=== PATIENT | male | born 1975 | race Caucasian/White ===

== ENCOUNTER 2017-01-24 23:47 | Emergency (ER) | payer MEDICAID ==
[2017-01-24 23:59] VITALS: BP 125/87
--- NOTE | 2017-01-25 00:01 | ED Physician Documentation ---
PD HPI HEENT - Stated complaint Stated Complaint: JAW SWELLING,PAIN - Chief complaint Chief Complaint: Heent - History obtained from History obtained from: Patient - History of Present Illness Timing - onset: How many days ago (2-3) Timing - details: Gradual onset Location: Tooth Improves: Nothing Worsens: Other (no exacerbating factors) Associated symptoms: Facial swelling. No: Fever, Trismus, Unable to swallow Recently seen: Not recently seen - Additional information Additional information: c/o 2-3 days of worsening swelling and pain adjacent to left lower tooth, with swelling spreading to his left jaw since earlier today Review of Systems Constitutional: denies: Fever Throat: reports: Dental pain / toothache PD PAST MEDICAL HISTORY - Past Medical History Past Medical History: No - Past Surgical History Past Surgical History: Yes General: EGD - Present Medications Home Medications: Ambulatory Orders Medication Instructions Recorded Confirmed Albuterol Sulfate [Proair Hfa] 8.5 gm IH DAILY 03/24/15 01/24/17 Chlorhexidine Gluconate [Peridex] 15 ml MM BID #473 ml 01/25/17 Clindamycin HCl 300 mg PO Q6HR 10 Days 01/25/17 HYDROcod/ACETAM 5/325 [[address] 5/325] 1 - 2 ea PO Q6H PRN #15 tablet 01/25/17 - Allergies Allergies/Adverse Reactions: Allergies Allergy/AdvReac Type Severity Reaction Status Date / Time aspirin Allergy Unknown Verified 01/24/17 23:59 red (food color) Allergy Unknown Verified 01/24/17 23:59 - Social History Does the pt smoke?: No Smoking Status: Never smoker Does the pt drink ETOH?: No Does the pt have substance abuse?: No - Immunizations Immunizations are current?: Yes PD ED PE NORMAL - Vitals Vital signs reviewed: Yes - General General: Alert and oriented X 3, No acute distress, Well developed/nourished - HEENT HEENT: Moist mucous membranes - Neck Neck: Supple, no meningeal sign PD ED PE EXPANDED - HEENT HEENT Visual: 1 - swelling, tenderness 2 - tenderness (with adjacent swelling of gingiva (buccal aspect). there is bloody discharge from buccal gingiva at this site) Results - Vitals Vitals: Vital Signs - 24 hr 01/24/17 23:57 Temperature 36.9 C Heart Rate 94 Respiratory 18 Rate Blood Pressure 125/87 H O2 Saturation 98 Oxygen O2 Source Room air PD MEDICAL DECISION MAKING - ED course Complexity details: considered differential, d/w patient Departure - Departure Disposition: 01 Home, Self Care Clinical Impression: Dental infection Condition: Good Instructions: ED Abscess Dental Follow-Up: Salena Grullon ARNP [Primary Care Provider] - Prescriptions: Clindamycin HCl 300 mg PO Q6HR 10 Days HYDROcod/ACETAM 5/325 [[address] 5/325] 1 - 2 ea PO Q6H PRN #15 tablet PRN Reason: Pain Chlorhexidine Gluconate [Peridex] 15 ml MM BID #473 ml Comments: Follow up with dentistry, next available appointment Discharge Date/Time: 01/25/17 00:55
[2017-01-25] MEDS ORDERED: HYDROcod/ACETAM 5/325 MG TABLET PO STA (00:38)
[2017-01-25] MEDS ORDERED: CLINDAMYCIN 150 MG CAPSULE PO STA (00:38)
[2017-01-25] MEDS ORDERED: HYDROcod/ACETAM 5/325 MG TABLET ONE (00:49)
[2017-01-25] MEDS ORDERED: CLINDAMYCIN 150 MG CAPSULE PO ONE (00:49)
== END 2017-01-25 00:55 | disposition home or self-care (01) ==
LOC: ED 23:47
DX: K04.7 Periapical abscess without sinus (principal)
CPT/HCPCS: 99283; A9270

== ENCOUNTER 2018-05-14 15:02 | Emergency (ER) | payer MEDICAID ==
[2018-05-14 15:14] VITALS: BP 126/84
[2018-05-14] MEDS ORDERED: DEXAMETHASONE 10 MG/ML VIAL PO STA (16:08)
--- NOTE | 2018-05-14 16:10 | ED Physician Documentation ---
PD HPI BACK PAIN - Stated complaint Stated Complaint: BACK WENT OUT - Chief complaint Chief Complaint: Back Pain - History obtained from History obtained from: Patient, Family - History of Present Illness Timing - onset: Yesterday Timing - duration: Days (1) Timing - details: Abrupt onset, Still present Location: Lower, Right Quality: Pain, Spasm, Sharp Associated symptoms: No: Fever, Weakness, Numbness, Incontinent of urine, Unable to urinate, Hematuria, Incontinent of stool Improves with: Rest, Position Worsened by: Movement Similar symptoms before: Diagnosis (back strain) Recently seen: Not recently seen - Additional information Additional information: 42-year-old male with a history of Marfan syndrome went to bend over to cone picker a can of Pringles and had sudden sharp spasm in his back and he was not able to stand up properly. He had a lot of pain yesterday and today pain is slightly better but very well localized in his right lower back. He denies any urinary or bowel symptoms denies any saddle anesthesia denies any numbness distally. He has not been ill otherwise. Review of Systems Constitutional: denies: Fever, Chills, Myalgias Eyes: denies: Decreased vision Ears: denies: Ear pain Nose: denies: Rhinorrhea / runny nose, Congestion Throat: denies: Sore throat Respiratory: denies: Cough GI: denies: Abdominal Pain, Nausea, Vomiting : denies: Dysuria, Frequency Skin: denies: Rash Musculoskeletal: reports: Back pain. denies: Neck pain, Extremity pain, Extremity swelling Neurologic: denies: Generalized weakness, Focal weakness, Numbness PD PAST MEDICAL HISTORY - Past Medical History Past Medical History: Yes Respiratory: Asthma - Past Surgical History Past Surgical History: Yes General: EGD - Present Medications Home Medications: Ambulatory Orders Medication Instructions Recorded Confirmed Albuterol Sulfate [Proair Hfa] 8.5 gm IH DAILY 03/24/15 01/24/17 Cyclobenzaprine [Flexeril] 10 mg PO TID PRN #20 tablet 05/14/18 Hydrocodone/Acetaminophen 1 - 2 each PO Q6H PRN #14 tablet 05/14/18 [Hydrocodon-Acetaminophen 5-325] - Allergies Allergies/Adverse Reactions: Allergies Allergy/AdvReac Type Severity Reaction Status Date / Time aspirin Allergy Unknown Verified 01/24/17 23:59 red (food color) Allergy Unknown Verified 05/14/18 15:14 - Social History Does the pt smoke?: No Smoking Status: Never smoker Does the pt drink ETOH?: No Does the pt have substance abuse?: No - Immunizations Immunizations are current?: Yes PD ED PE NORMAL - Vitals Vital signs reviewed: Yes (diastolic hypertension) - General General: Alert and oriented X 3, No acute distress, Well developed/nourished, Other (tall thin male with crazy buffont hair is in no distress at rest) - HEENT HEENT: Atraumatic, PERRL, EOMI - Respiratory Respiratory: No respiratory distress - Back Back: No CVA TTP, Other (There is point tenderness to the lower lumbar spine and spasm to the right paraspinous muscles at the L4/5 level) - Derm Derm: Normal color, Warm and dry, No rash - Extremities Extremities: No deformity, No edema - Neuro Neuro: Alert and oriented X 3, data warehouse consultant 2-12 intact, No motor deficit, No sensory deficit Eye Opening: Spontaneous Motor: Obeys Commands Verbal: Oriented GCS Score: 15 - Psych Psych: Normal mood, Normal affect Results - Vitals Vitals: Vital Signs - 24 hr 05/14/18 15:11 Temperature 36.8 C Heart Rate 93 Respiratory 18 Rate Blood Pressure 126/84 H O2 Saturation 100 Oxygen O2 Source Room air PD MEDICAL DECISION MAKING - ED course Complexity details: reviewed old records, considered differential, d/w patient, d/w family ED course: 42-year-old male with acute lumbar spasm is administered Dexamethasone 10 mg orally and we will place him on some pain medication and muscle relaxant. Departure - Departure Disposition: 01 Home, Self Care Clinical Impression: Lumbar paraspinal muscle spasm Condition: Stable Instructions: ED Sciatica Follow-Up: Brenda Loyd DNP [Primary Care Provider] - Prescriptions: Cyclobenzaprine [Flexeril] 10 mg PO TID PRN #20 tablet PRN Reason: Spasms Hydrocodone/Acetaminophen [Hydrocodon-Acetaminophen 5-325] 1 - 2 each PO Q6H PRN #14 tablet PRN Reason: pain Discharge Date/Time: 05/14/18 16:17
== END 2018-05-14 16:17 | disposition home or self-care (01) ==
LOC: ED 15:02
DX: M62.830 Muscle spasm of back (principal); Q87.40 Marfan syndrome, unspecified
CPT/HCPCS: 99283

== ENCOUNTER 2018-07-06 13:24 | Emergency (ER) | payer MEDICAID ==
[2018-07-06 13:31] VITALS: BP 125/87
--- NOTE | 2018-07-06 14:46 | ED Physician Documentation ---
PD HPI HEENT - Stated complaint Stated Complaint: MOUTH PAIN - Chief complaint Chief Complaint: Heent - History obtained from History obtained from: Patient - History of Present Illness Timing - onset: How many days ago (4) Timing - duration: Days (4) Timing - details: Gradual onset, Now resolved Location: Tooth Improves: Medication Worsens: Swalllowing Associated symptoms: Swollen nodes. No: Fever, Congestion, Rhinorrhea, Cough Similar symptoms before: Diagnosis (dental abscess) Recently seen: Emergency Dept - Additional information Additional information: 42-year-old male with a history of Marfan syndrome who has developed a abscessed tooth on the right lower has increased pain and swelling to the right lower jaw. He has had this similarly once previously he took some clindamycin with improvement. He reports that his back pain improved dramatically with the treatment provided on the last visit. Review of Systems Constitutional: denies: Fever, Chills Eyes: denies: Decreased vision Ears: denies: Ear pain Nose: denies: Rhinorrhea / runny nose Throat: reports: Dental pain / toothache Respiratory: denies: Cough PD PAST MEDICAL HISTORY - Past Medical History Respiratory: Asthma - Past Surgical History Past Surgical History: Yes General: EGD - Present Medications Home Medications: Ambulatory Orders Medication Instructions Recorded Confirmed Albuterol Sulfate [Proair Hfa] 8.5 gm IH DAILY 03/24/15 01/24/17 Cyclobenzaprine [Flexeril] 10 mg PO TID PRN #20 tablet 05/14/18 Hydrocodone/Acetaminophen 1 - 2 each PO Q6H PRN #14 tablet 05/14/18 [Hydrocodon-Acetaminophen 5-325] Chlorhexidine Gluconate [Peridex] 15 ml MM BID #473 ml 07/06/18 Clindamycin HCl [Clindamycin 300MG 300 mg PO Q6H #28 capsule 07/06/18 CAP] - Allergies Allergies/Adverse Reactions: Allergies Allergy/AdvReac Type Severity Reaction Status Date / Time aspirin Allergy Unknown Verified 01/24/17 23:59 red (food color) Allergy Unknown Verified 05/14/18 15:14 sracha sauce Allergy Edema Uncoded 07/06/18 13:31 - Social History Does the pt smoke?: No Smoking Status: Never smoker Does the pt drink ETOH?: No Does the pt have substance abuse?: No - Immunizations Immunizations are current?: Yes PD ED PE NORMAL - Vitals Vital signs reviewed: Yes (hypertensive mild ) - General General: Alert and oriented X 3, No acute distress, Well developed/nourished - HEENT HEENT: Atraumatic, PERRL, EOMI, Other (There is a tooth broken off at the base on the right lower jaw and the gums to the buccal side of this are inflamed and swollen without fluctuance. 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, No motor deficit, No sensory deficit, Normal speech Eye Opening: Spontaneous Motor: Obeys Commands Verbal: Oriented GCS Score: 15 - Psych Psych: Normal mood, Normal affect Results - Vitals Vitals: Vital Signs - 24 hr 07/06/18 13:28 Temperature 36 C L Heart Rate 84 Respiratory 16 Rate Blood Pressure 125/87 H O2 Saturation 100 Oxygen O2 Source Room air PD MEDICAL DECISION MAKING - ED course Complexity details: considered differential, d/w patient ED course: 42-year-old male with a abscess to his tooth will require some antibiotic and pain medication he does have some pain medication left over from his prior he indicates also that the mouthwash to use previously the Peridex helped with this quite a bit. Departure - Departure Disposition: 01 Home, Self Care Clinical Impression: Dental infection Condition: Stable Instructions: ED Tooth Pain Follow-Up: Brenda Loyd DNP [Primary Care Provider] - Prescriptions: Chlorhexidine Gluconate [Peridex] 15 ml MM BID #473 ml Clindamycin HCl [Clindamycin 300MG CAP] 300 mg PO Q6H #28 capsule
== END 2018-07-06 14:55 | disposition home or self-care (01) ==
LOC: ED 13:24
DX: K04.7 Periapical abscess without sinus (principal); Q87.40 Marfan syndrome, unspecified
CPT/HCPCS: 99283

== ENCOUNTER 2019-05-31 13:14 | Day surgery (SDC) | payer MEDICAID ==
[2019-05-31] MEDS ORDERED: GLUCAGON 1 MG/ML VIAL IVP STA (14:07)
--- NOTE | 2019-05-31 14:11 | ED Physician Documentation ---
History of Present Illness - Stated complaint Stated Complaint: DIFF. SWALLOWING - Chief complaint Chief Complaint: Heent - History obtained from History obtained from: Patient - History of Present Illness Timing: Last night (43-year-old gentleman with history of esophageal food impactions, sounds like some sort of stricture from his description and at some point he says he needs to have a dilation. Since last night he feels like turkey is stuck in his throat and he cannot tolerate food or liquids.) Review of Systems Constitutional: reports: Reviewed and negative Throat: reports: Reviewed and negative Cardiac: reports: Reviewed and negative PD PAST MEDICAL HISTORY - Past Medical History Respiratory: Asthma - Past Surgical History Past Surgical History: Yes General: EGD - Present Medications Home Medications: Ambulatory Orders Medication Instructions Recorded Confirmed Albuterol Sulfate [Proair Hfa] 8.5 gm IH DAILY 03/24/15 01/24/17 Cyclobenzaprine [Flexeril] 10 mg PO TID PRN #20 tablet 05/14/18 Hydrocodone/Acetaminophen 1 - 2 each PO Q6H PRN #14 tablet 05/14/18 [Hydrocodon-Acetaminophen 5-325] Chlorhexidine Gluconate [Peridex] 15 ml MM BID #473 ml 07/06/18 Clindamycin HCl [Clindamycin 300MG 300 mg PO Q6H #28 capsule 07/06/18 CAP] - Allergies Allergies/Adverse Reactions: Allergies Allergy/AdvReac Type Severity Reaction Status Date / Time aspirin Allergy Unknown Verified 05/31/19 13:22 red (food color) Allergy Unknown Verified 05/31/19 13:22 sracha sauce Allergy Edema Uncoded 05/31/19 13:22 - Social History Does the pt smoke?: No Smoking Status: Never smoker Does the pt drink ETOH?: No Does the pt have substance abuse?: No - Immunizations Immunizations are current?: Yes PD ED PE NORMAL - Vitals Vital signs reviewed: Yes - General General: Alert and oriented X 3, No acute distress - HEENT HEENT: Pharynx benign - Neck Neck: Supple, no meningeal sign, No bony TTP - Cardiac Cardiac: RRR, No murmur - Respiratory Respiratory: No respiratory distress, Clear bilaterally - Abdomen Abdomen: Non tender - Neuro Neuro: Alert and oriented X 3, Normal speech Results - Vitals Vitals: Vital Signs - 24 hr 05/31/19 05/31/1919 13:19 14:59 15:20 Temperature 36.3 C L Heart Rate 93 83 86 Respiratory 17 14 14 Rate Blood Pressure 121/71 60/41 L 83/69 L O2 Saturation 98 95 98 Oxygen O2 Source Room air - Labs Labs: Laboratory Tests 05/31/19 05/31/19 14:10 14:10 WBC 8.5 RBC 5.17 Hgb 15.8 Hct 47.6 MCV 92.1 MCH 30.6 MCHC 33.2 RDW 15.0 Plt Count 277 MPV 8.9 Neut # (Auto) 5.6 Lymph # (Auto) 1.4 L [place] # (Auto) 0.8 Eos # (Auto) 0.7 Baso # (Auto) 0.1 Absolute Nucleated RBC 0.00 Nucleated RBC % 0.0 Sodium 141 Potassium 3.7 Chloride 104 Carbon Dioxide 24 Anion Gap 13.0 BUN 22 H Creatinine 1.0 Estimated GFR (MDRD) 82 L Glucose 76 Calcium 9.2 Total Bilirubin 1.5 H AST 23 ALT 13 Alkaline Phosphatase 60 Total Protein 8.2 Albumin 4.6 Globulin 3.6 Albumin/Globulin Ratio 1.3 Lipase 30 PD MEDICAL DECISION MAKING - ED course ED course: 43-year-old gentleman with recurrence of esophageal food impaction, from his description it sounds like he probably has a stricture. We trialed glucagon and nitroglycerin without relief, he actually became briefly significantly hypotensive with the nitroglycerin. Talked with Dr. Zhang she will come in and see him for potential endoscopic fix, we spoke at 1534. Departure - Departure Disposition: ED Transfer to [facility] Clinical Impression: Esophageal foreign body Qualifiers: Encounter type: initial encounter Qualified Code(s): T18.108A - Unspecified foreign body in esophagus causing other injury, initial encounter Condition: Stable
[2019-05-31] MEDS ORDERED: WATER FOR INJECTION,STERILE 10 ML ONE (14:20)
[2019-05-31] MEDS ORDERED: NITROGLYCERIN SL 0.4 MG TABLET SL STA (14:36)
[2019-05-31 14:37] LABS: BASOPHILS # (AUTO) 0.1 10^3/uL (0.0-0.1); BASOPHILS % (AUTO) 0.7 %; EOSINOPHILS # (AUTO) 0.7 10^3/uL (0.0-0.7); EOSINOPHILS % (AUTO) 7.8 %; HGB - HEMOGLOBIN 15.8 g/dL (14.0-18.0); LYMPHOCYTES # (AUTO) 1.4 10^3/uL (1.5-3.5); LYMPHOCYTES % (AUTO) 16.7 %; MEAN CORPUSCULAR HEMOGLOBIN 30.6 pg (27.0-31.0); MEAN CORPUSCULAR HGB CONC 33.2 g/dL (32.0-36.0); MEAN CORPUSCULAR VOLUME 92.1 fL (80.0-94.0); MEAN PLATELET VOLUME 8.9 fL (7.4-11.4); MONOCYTES # (AUTO) 0.8 10^3/uL (0.0-1.0); MONOCYTES % (AUTO) 9.1 %; NEUTROPHILS # (AUTO) 5.6 10^3/uL (1.5-6.6); NEUTROPHILS % (AUTO) 65.5 %; PLT - PLATELET COUNT 277 10^3/uL (130-450); RED BLOOD COUNT 5.17 10^6/uL (4.70-6.10); WHITE BLOOD COUNT 8.5 x10^3/uL (4.8-10.8)
[2019-05-31 14:52] LABS: ALBUMIN 4.6 g/dL (3.2-5.5); ALBUMIN/GLOBULIN RATIO 1.3 (1.0-2.2); BILIRUBIN,TOTAL 1.5 mg/dL (0.2-1.0); CALCIUM 9.2 mg/dL (8.5-10.3); TOTAL PROTEIN 8.2 g/dL (6.7-8.2)
--- NOTE | 2019-05-31 15:57 | ANESTHESIA ---
Pre-Anesthesia VS, & Labs - Diagnosis foreign body esophagus - Procedure EGD Vital Signs: Temp Pulse Resp BP Pulse Ox 36.3 C L 86 14 83/69 L 98 05/31/19 13:19 05/31/19 15:20 05/31/19 15:20 05/31/19 15:20 05/31/19 15:20 Height 6 ft 3 in Weight (kg) 78.471 kg Body Mass Index 21.6 - NPO Last Food Intake: 1800 05/30/2019 - Lab Results Current Lab Results: Laboratory Tests 05/31/19 14:10: Sodium 141, Potassium 3.7, Chloride 104, Carbon Dioxide 24, Anion Gap 13.0, BUN 22 H, Creatinine 1.0, Estimated GFR (MDRD) 82 L, Glucose 76, Calcium 9.2, Total Bilirubin 1.5 H, AST 23, ALT 13, Alkaline Phosphatase 60, Total Protein 8.2, Albumin 4.6, Globulin 3.6, Albumin/Globulin Ratio 1.3, Lipase 30 05/31/19 14:10: WBC 8.5, RBC 5.17, Hgb 15.8, Hct 47.6, MCV 92.1, MCH 30.6, MCHC 33.2, RDW 15.0, Plt Count 277, MPV 8.9, Neut # (Auto) 5.6, Lymph # (Auto) 1.4 L, Bent # (Auto) 0.8, Eos # (Auto) 0.7, Baso # (Auto) 0.1, Absolute Nucleated RBC 0.00, Nucleated RBC % 0.0 Fish Bones: 05/31/19 14:10 05/31/19 14:10 Home Medications and Allergies Albuterol Sulfate [Proair Hfa] 8.5 gm IH DAILY 03/24/15 Advair singulair Allergies/Adverse Reactions: Allergies Allergy/AdvReac Type Severity Reaction Status Date / Time aspirin Allergy Unknown Verified 05/31/19 13:22 red (food color) Allergy Unknown Verified 05/31/19 13:22 sracha sauce Allergy Edema Uncoded 05/31/19 13:22 Anes History & Medical History - Anesthetic History Anesthesia Complications: reports: No previous complications - Medical History Cardiovascular: reports: Other (marfan syndrome) Pulmonary: reports: Asthma (controlled with meds) Gastrointestinal: reports: Other (frequent esophageal obstruction) Urinary: reports: None Neuro: reports: None Musculoskeletal: reports: None Endocrine/Autoimmune: reports: None Blood Disorders: reports: None Smoking Status: Never smoker Psychosocial: reports: No issues indicated - Surgical History General: EGD Eyes Ears Nose Throat (EENT): Other (nasal cautery for nose bleed) Exam General: Alert, Oriented x3, Cooperative, No acute distress Dental: Poor dentition Mouth Openin Fingerbreadth Neck Mobility: Reduced (large bundle of hair) Mallampati classification: II Thyromental Distance: greater than 6 cm Respiratory: Lungs clear, Normal breath sounds, No respiratory distress, No accessory muscle use Cardiovascular: Regular rate, Normal S1, Normal S2, No murmurs Mental/Cognitive Status: Alert/Oriented X3, Normal for patient Plan Anesthesia Type: General Consent for Procedure(s) Verified and Reviewed: Yes Code Status: Attempt Resuscitation ASA classification: 3-Severe systemic disease Is this case an emergency?: Yes
[2019-05-31] MEDS ORDERED: fentaNYL 100 MCG/2 ML VIAL ONE (16:14)
[2019-05-31] MEDS ORDERED: MIDAZOLAM 2 MG/2 ML VIAL ONE (16:15)
--- NOTE | 2019-05-31 16:52 | HISTORY & PHYSICAL EXAMINATION ---
HPI - Admitted From Admitted from: ED - History Obtained From Records Reviewed: RN notes reviewed, Old records reviewed History obtained from: Patient Exam limitations: No limitations - History of Present Illness Severity at the worst: reports: Moderate Pain Quality: reports: Dull, Aching, Crushing Context-Pain started w/: reports: Eating Timing: reports: Abrupt onset, Intermittent Duration: reports: Hours: (started last night at supper with first bites) Improved with: reports: Nothing Worsened by: reports: Nothing HPI Comment/Other: Unfortunate gentleman with a history of a proximal esophageal stricture. He has been seen in our ED in the past with complaint of esophageal food bolus impaction in 2014. He says this started last night with his first bites of supper and has been consistent since that time. He has not been able to swallow liquids or solids. He reports multiple similar episodes starting when he was about 15. He doesnt recall ever having esophageal dilatation. PMH/PSH - Past Medical History Cardiovascular: positive: Other (marfan syndrome) Respiratory: positive: Asthma (controlled with meds) Neuro: positive: None Endocrine/Autoimmune: positive: None GI: positive: Other (frequent esophageal obstruction) : positive: None Musculoskeletal: positive: None MRSA Hx?: No Other Past Medical History: Diagnosed with Marfan's syndrome several years ago - Past Surgical History General: positive: EGD HEENT: positive: Other (nasal cautery for nose bleed) Social & Family Hx - Living Situation Living Arrangement: At home - Social History Does the pt smoke?: No Smoking Status: Never smoker Does the pt drink ETOH?: No Does the pt have substance abuse?: No - POLST Patient has POLST: No Meds/Allgy - Home Medications Home Medications: Ambulatory Orders Medication Instructions Recorded Confirmed Albuterol Sulfate [Proair Hfa] 8.5 gm IH DAILY 03/24/15 01/24/17 Cyclobenzaprine [Flexeril] 10 mg PO TID PRN #20 tablet 05/14/18 Hydrocodone/Acetaminophen 1 - 2 each PO Q6H PRN #14 tablet 05/14/18 [Hydrocodon-Acetaminophen 5-325] Chlorhexidine Gluconate [Peridex] 15 ml MM BID #473 ml 07/06/18 Clindamycin HCl [Clindamycin 300MG 300 mg PO Q6H #28 capsule 07/06/18 CAP] - Allergies Allergies/Adverse Reactions: Allergies Allergy/AdvReac Type Severity Reaction Status Date / Time aspirin Allergy Unknown Verified 05/31/19 13:22 red (food color) Allergy Unknown Verified 05/31/19 13:22 sracha sauce Allergy Edema Uncoded 05/31/19 13:22 Review of Systems - Constitutional Constitutional: denies: Fatigue, Fever, Chills, Malaise - Eyes Eyes: denies: Pain, Irritation - Ears, Nose & Throat Ears, Nose & Throat: denies: Tinnitus, Vertigo - Cardiovascular Cariovascular: denies: Irregular heart rate, Palpitations, Chest pain, Lightheadedness - Respiratory Respiratory: reports: Sputum production. denies: Cough, Wheezing - Gastrointestinal Gastrointestinal: denies: Abdominal pain, Abdominal distention, Constipation, Diarrhea, Change in bowel habits, Black stools, Bloody stools, Nausea, Vomiting - Genitourinary Genitourinary: denies: Dysuria, Frequency - Musculoskeletal Musculoskeletal: denies: Muscle pain, Back pain, Muscle aches, Stiffness - Integumentary Integumentary: denies: Rash - Neurological Neurological: denies: General weakness, Focal weakness - Psychiatric Psychiatric: denies: Depression, Anxiety - Hematologic/Lymphatic Hematologic/Lymphatic: denies: Anemia, Bruising - All Other Systems All Other Systems: reports: Reviewed and negative Exam - Vital Signs Reviewed Vital Signs: Yes Vital Signs: Vital Signs x48h Temp Pulse Resp BP Pulse Ox 05/31/19 15:20 86 14 83/69 L 98 05/31/19 14:59 83 14 60/41 L 95 05/31/19 13:19 36.3 C L 93 17 121/71 98 - Physical Exam General Appearance: positive: Alert, Moderate distress Eyes Bilateral: positive: Normal inspection, PERRL, EOMI, Conjunctivae nml ENT: positive: ENT inspection nml, No signs of dehydration. negative: Oral lesions Neck: positive: Nml inspection, No JVD, Trachea midline Respiratory: positive: Chest non-tender, No respiratory distress, Breath sounds nml Cardiovascular: positive: Regular rate & rhythm, No murmur, No gallop Peripheral Pulses: positive: 2+ Abdomen: positive: Non-tender, Nml bowel sounds, No distention Back: positive: Nml inspection Skin: positive: Color nml Extremities: positive: Non-tender, Full ROM Neurologic/Psychiatric: positive: Oriented x3 Results - Lab Results Lab results reviewed: Yes Fish Bones: 05/31/19 14:10 05/31/19 14:10 Other Lab Results: Lab Results x24hrs 05/31/19 05/31/19 Range/Units 14:10 14:10 WBC 8.5 (4.8-10.8) x10^3/uL RBC 5.17 (4.70-6.10) 10^6/uL Hgb 15.8 (14.0-18.0) g/dL Hct 47.6 (42.0-52.0) % MCV 92.1 (80.0-94.0) fL MCH 30.6 (27.0-31.0) pg MCHC 33.2 (32.0-36.0) g/dL RDW 15.0 (12.0-15.0) % Plt Count 277 (130-450) 10^3/uL MPV 8.9 (7.4-11.4) fL Neut # (Auto) 5.6 (1.5-6.6) 10^3/uL Lymph # (Auto) 1.4 L (1.5-3.5) 10^3/uL [place] # (Auto) 0.8 (0.0-1.0) 10^3/uL Eos # (Auto) 0.7 (0.0-0.7) 10^3/uL Baso # (Auto) 0.1 (0.0-0.1) 10^3/uL Absolute Nucleated RBC 0.00 x10^3/uL Nucleated RBC % 0.0 /100WBC Sodium 141 (135-145) mmol/L Potassium 3.7 (3.5-5.0) mmol/L Chloride 104 (101-111) mmol/L Carbon Dioxide 24 (21-32) mmol/L Anion Gap 13.0 (6-13) BUN 22 H (6-20) mg/dL Creatinine 1.0 (0.6-1.2) mg/dL Estimated GFR (MDRD) 82 L (>89) Glucose 76 (70-100) mg/dL Calcium 9.2 (8.5-10.3) mg/dL Total Bilirubin 1.5 H (0.2-1.0) mg/dL AST 23 (10-42) IU/L ALT 13 (10-60) IU/L Alkaline Phosphatase 60 (42-121) IU/L Total Protein 8.2 (6.7-8.2) g/dL Albumin 4.6 (3.2-5.5) g/dL Globulin 3.6 (2.1-4.2) g/dL Albumin/Globulin Ratio 1.3 (1.0-2.2) Lipase 30 (22-51) U/L Impression/Plan - Problem List Problem List: Food bolus impaction in the setting of a 43 year old gentleman with multiple prior episodes. We have discussed the risks and benefits of EGD with removal of impacted food bolus and the patient has expressed a desire to have the procedure.
[2019-05-31] MEDS ORDERED: LACTATED RINGERS 1,000 ML IV ONE (17:11)
[2019-05-31 18:49] VITALS: BP 110/82
== END 2019-05-31 17:03 | disposition home or self-care (01) ==
LOC: ED 13:14 → SDS 17:02
PROVIDERS: ATTEND Surgery
PROC: 0DB68ZX Excision of Stomach, Via Natural or Artificial Opening Endoscopic, Diagnostic (ICD-10-PCS; 2019-05-31)
PROC: 0DB28ZX Excision of Middle Esophagus, Via Natural or Artificial Opening Endoscopic, Diagnostic (ICD-10-PCS; 2019-05-31)
PROC: 0DB38ZX Excision of Lower Esophagus, Via Natural or Artificial Opening Endoscopic, Diagnostic (ICD-10-PCS; 2019-05-31)
PROC: 0DB98ZX Excision of Duodenum, Via Natural or Artificial Opening Endoscopic, Diagnostic (ICD-10-PCS; principal; 2019-05-31 16:15)
DX: K22.2 Esophageal obstruction (principal); K22.10 Ulcer of esophagus without bleeding; K29.70 Gastritis, unspecified, without bleeding; I95.2 Hypotension due to drugs; T46.3X5A Adverse effect of coronary vasodilators, initial encounter; Y92.238 Other place in hospital as the place of occurrence of the external cause; J45.909 Unspecified asthma, uncomplicated; Q87.40 Marfan syndrome, unspecified; Z79.899 Other long term (current) drug therapy
CPT/HCPCS: 43239; 80053; 83690; 85025; 96374; 99283; 99285; A9270; J7120

== ENCOUNTER 2020-05-12 14:54 | Outpatient (CLI) | payer MEDICAID ==
[2020-05-12 20:11] LABS: BASOPHILS # (AUTO) 0.1 10^3/uL (0.0-0.1); BASOPHILS % (AUTO) 0.7 %; EOSINOPHILS # (AUTO) 0.8 10^3/uL (0.0-0.7); EOSINOPHILS % (AUTO) 11.2 %; HGB - HEMOGLOBIN 14.5 g/dL (14.0-18.0); LYMPHOCYTES # (AUTO) 1.6 10^3/uL (1.5-3.5); LYMPHOCYTES % (AUTO) 21.7 %; MEAN CORPUSCULAR HGB CONC 32.4 g/dL (32.0-36.0); MEAN CORPUSCULAR VOLUME 92.4 fL (80.0-94.0); MEAN PLATELET VOLUME 9.3 fL (7.4-11.4); MONOCYTES # (AUTO) 0.8 10^3/uL (0.0-1.0); NEUTROPHILS # (AUTO) 4.1 10^3/uL (1.5-6.6); NEUTROPHILS % (AUTO) 55.3 %; PLT - PLATELET COUNT 281 10^3/uL (130-450); RED BLOOD COUNT 4.84 10^6/uL (4.70-6.10); RED CELL DISTRIBUTION WIDTH 15.2 % (12.0-15.0); WHITE BLOOD COUNT 7.5 x10^3/uL (4.8-10.8)
[2020-05-12 20:22] LABS: ALBUMIN/GLOBULIN RATIO 1.1 (1.0-2.2); ALKALINE PHOSPHATASE 80 IU/L (42-121); ALT ALANINE AMINOTRANSFERASE 13 IU/L (10-60); AST ASPARTATE AMINOTRANSFERASE 16 IU/L (10-42); BILIRUBIN,TOTAL 1.2 mg/dL (0.2-1.0); BUN - BLOOD UREA NITROGEN 15 mg/dL (6-20); CALCIUM 8.9 mg/dL (8.5-10.3); CARBON DIOXIDE - CO2 26 mmol/L (21-32); CHLORIDE 103 mmol/L (101-111); CHOLESTEROL 174 mg/dL; CREATININE 1.1 mg/dL (0.6-1.2); GLUCOSE 87 mg/dL (70-100); HDL CHOLESTEROL 43 mg/dL; LDL CHOLESTEROL,CALCULATED 123 mg/dL; LDL/HDL RATIO 2.9 (<3.6); SODIUM 136 mmol/L (135-145); TOTAL PROTEIN 7.5 g/dL (6.7-8.2); VLDL CHOLESTEROL 8 mg/dL
== END 2020-05-12 14:55 | disposition home or self-care (01) ==
LOC: LAB.S 14:54
PROVIDERS: ATTEND Registered Nurse
DX: R46.89 Other symptoms and signs involving appearance and behavior (principal); K22.2 Esophageal obstruction; J45.909 Unspecified asthma, uncomplicated; K21.9 Gastro-esophageal reflux disease without esophagitis; K20.0 Eosinophilic esophagitis
CPT/HCPCS: 36415; 80050; 80061; 83721

== ENCOUNTER 2021-07-13 13:38 | Day surgery (SDC) | payer MEDICAID ==
[2021-07-13 15:12] LABS: BASOPHILS % (AUTO) 0.5 %; EOSINOPHILS # (AUTO) 0.2 10^3/uL (0.0-0.7); HCT - HEMATOCRIT 42.9 % (42.0-52.0); HGB - HEMOGLOBIN 14.4 g/dL (14.0-18.0); LYMPHOCYTES # (AUTO) 1.3 10^3/uL (1.5-3.5); LYMPHOCYTES % (AUTO) 15.4 %; MEAN CORPUSCULAR HEMOGLOBIN 31.7 pg (27.0-31.0); MEAN CORPUSCULAR HGB CONC 33.6 g/dL (32.0-36.0); MEAN CORPUSCULAR VOLUME 94.5 fL (80.0-94.0); MEAN PLATELET VOLUME 8.8 fL (7.4-11.4); MONOCYTES # (AUTO) 0.7 10^3/uL (0.0-1.0); MONOCYTES % (AUTO) 8.3 %; NEUTROPHILS # (AUTO) 6.2 10^3/uL (1.5-6.6); NEUTROPHILS % (AUTO) 73.4 %; PLT - PLATELET COUNT 251 10^3/uL (130-450); RED BLOOD COUNT 4.54 10^6/uL (4.70-6.10); RED CELL DISTRIBUTION WIDTH 14.7 % (12.0-15.0); WHITE BLOOD COUNT 8.4 x10^3/uL (4.8-10.8)
--- NOTE | 2021-07-13 15:17 | XRAY Report ---
PROCEDURE: Neck Soft Tissue, x-ray INDICATIONS: throat obstruction TECHNIQUE: 2 views of the neck were acquired. COMPARISON: None FINDINGS: Airway: The airway appears patent. Soft tissues: Prevertebral soft tissues are normal in thickness. The epiglottis and aryepiglottic f olds appear normal. No soft tissue gas. Frontal view is obscured by artifact arising from the patie nt's hair Bones: No suspicious bony lesions. Visualized cervical spine is normally aligned. Incidental note is made of advanced carious and periodontal dental disease. IMPRESSION: 1. Unremarkable lateral view of the soft tissue neck. 2. Nondiagnostic frontal view 3. Advanced carious and periodontal dental disease Reviewed by: Timmy Mancilla MD on 07/13/2021 2:15 PM AKST Approved by: Timmy Mancilla MD on 07/13/2021 2:15 PM AKST Station ID: [id number]
[2021-07-13 15:25] LABS: CALCIUM 8.9 mg/dL (8.5-10.3)
[2021-07-13] MEDS ORDERED: GLUCAGON 1 MG/ML VIAL IVP STA (16:30)
[2021-07-13] MEDS ORDERED: SODIUM CHLORIDE 0.9% 1,000 ML IV STA (16:30)
--- NOTE | 2021-07-13 16:32 | ED Physician Documentation ---
History of Present Illness - Stated complaint Stated Complaint: THROAT OBSTRUCTION - Chief complaint Chief Complaint: General - History obtained from History obtained from: Patient - History of Present Illness Timing: Today Pain level max: 0 Pain level now: 0 - Additonal information Additional information: Patient is a 45-year-old male who states he was eating dinner on Tuesday night and felt like chicken became stuck in his esophagus. He states he has been unable to eat or drink since then. He states he has a history of Marfan syndrome. He states that he has had strictures in his esophagus before. Has had endoscopies here in the past. Review of Systems Constitutional: denies: Fever, Chills Throat: denies: Sore throat Cardiac: denies: Chest pain / pressure Respiratory: denies: Cough GI: denies: Abdominal Pain Skin: denies: Rash Musculoskeletal: denies: Neck pain, Back pain Neurologic: denies: Headache PD PAST MEDICAL HISTORY - Past Medical History Past Medical History: Yes Cardiovascular: Other (marfan syndrome) Respiratory: Asthma Neuro: None Endocrine/Autoimmune: None GI: Other (frequent esophageal obstruction) : None Musculoskeletal: None - Past Surgical History Past Surgical History: Yes General: EGD HEENT: Other (nasal cautery for nose bleed) - Present Medications Home Medications: Ambulatory Orders Medication Instructions Recorded Confirmed Albuterol Sulfate [Proair Hfa] 8.5 gm IH DAILY 03/24/15 01/24/17 Cyclobenzaprine [Flexeril] 10 mg PO TID PRN #20 tablet 05/14/18 Hydrocodone/Acetaminophen 1 - 2 each PO Q6H PRN #14 tablet 05/14/18 [Hydrocodon-Acetaminophen 5-325] Chlorhexidine Gluconate [Peridex] 15 ml MM BID #473 ml 07/06/18 Clindamycin HCl [Clindamycin 300MG 300 mg PO Q6H #28 capsule 07/06/18 CAP] - Allergies Allergies/Adverse Reactions: Allergies Allergy/AdvReac Type Severity Reaction Status Date / Time aspirin Allergy Unknown Verified 07/13/21 13:41 red (food color) Allergy Unknown Verified 07/13/21 13:41 sracha sauce Allergy Edema Uncoded 07/13/21 13:41 - Social History Does the pt smoke?: No Smoking Status: Never smoker Does the pt drink ETOH?: No Does the pt have substance abuse?: No - Immunizations Immunizations are current?: Yes - POLST Patient has POLST: No PD ED PE NORMAL - Vitals Vital signs reviewed: Yes - General General: Alert and oriented X 3, No acute distress - HEENT HEENT: Moist mucous membranes - Neck Neck: Supple, no meningeal sign - Cardiac Cardiac: RRR - Respiratory Respiratory: No respiratory distress, Clear bilaterally - Derm Derm: Warm and dry - Neuro Neuro: Alert and oriented X 3 - Psych Psych: Normal mood, Normal affect Results - Vitals Vitals: Vital Signs - 24 hr 07/13/21 07/13/21 07/13/21 13:41 18:26 20:26 Temperature 36.5 C 36.2 C L Heart Rate 98 87 87 Respiratory 16 19 Rate Blood Pressure 121/69 116/73 117/81 H O2 Saturation 100 99 98 07/13/21 07/13/21 07/13/21 20:30 20:35 20:40 Temperature 36.2 C L 36.2 C L 36.2 C L Heart Rate 83 82 89 Respiratory 16 19 19 Rate Blood Pressure 113/81 H 110/78 114/80 O2 Saturation 96 96 96 07/13/21 07/13/21 20:51 21:00 Temperature 36.3 C L 36.4 C L Heart Rate 83 79 Respiratory 18 16 Rate Blood Pressure 117/81 H 119/80 O2 Saturation 99 96 Oxygen O2 Source Room air - Labs Labs: Laboratory Tests 07/13/21 07/13/21 07/13/21 15:05 15:05 16:55 WBC 8.4 RBC 4.54 L Hgb 14.4 Hct 42.9 MCV 94.5 H MCH 31.7 H MCHC 33.6 RDW 14.7 Plt Count 251 MPV 8.8 Neut # (Auto) 6.2 Lymph # (Auto) 1.3 L Lee # (Auto) 0.7 Eos # (Auto) 0.2 Baso # (Auto) 0.0 Absolute Nucleated RBC 0.00 Nucleated RBC % 0.0 Sodium 137 Potassium 4.0 Chloride 103 Carbon Dioxide 22 Anion Gap 12.0 BUN 24 H Creatinine 1.0 Estimated GFR (MDRD) 82 L Glucose 77 Calcium 8.9 Nasal Adenovirus (PCR) NOT DETECTED Nasal B. parapertussis DNA (PCR) NOT DETECTED Nasal Coronavir 229E PCR NOT DETECTED Nasal Coronavir HKU1 PCR NOT DETECTED Nasal Coronavir NL63 PCR NOT DETECTED Nasal Coronavir OC43 PCR NOT DETECTED Nasal Enterovir/Rhinovir PCR NOT DETECTED Nasal Influenza B PCR NOT DETECTED Nasal Influenza A PCR NOT DETECTED Nasal Parainfluen 1 PCR NOT DETECTED Nasal Parainfluen 2 PCR NOT DETECTED Nasal Parainfluen 3 PCR NOT DETECTED Nasal Parainfluen 4 PCR NOT DETECTED Nasal RSV (PCR) NOT DETECTED Nasal B.pertussis DNA PCR NOT DETECTED Nasal C.pneumoniae (PCR) NOT DETECTED Anshu Human Metapneumo PCR NOT DETECTED Nasal M.pneumoniae (PCR) NOT DETECTED Nasal SARS-CoV-2 (PCR) NOT DETECTED PD MEDICAL DECISION MAKING - ED course Complexity details: reviewed results, re-evaluated patient, considered d ifferential, d/w patient, d/w sr technical sales consultant ED course: Patient is unable to tolerate any oral liquids. He was given an IV and IV fluids. No significant electrolyte abnormalities. Glucagon did not allow passage. I discussed the case with Dr. Haines, general surgery who will take the patient to the OR for endoscopy. This document was made in part using voice recognition software. While efforts are made to proofread this document, sound alike and grammatical errors may occur. Departure - Departure Disposition: ED Transfer to [facility] Clinical Impression: Esophageal foreign body Qualifiers: Encounter type: initial encounter Qualified Code(s): T18.108A - Unspecified foreign body in esophagus causing other injury, initial encounter Condition: Good Discharge Date/Time: 07/13/21 19:30
--- NOTE | 2021-07-13 18:22 | HISTORY & PHYSICAL EXAMINATION ---
Chief Complaint - Chief Complaint Chief Complaint: food impaction History of Present Illness - History Obtained From History obtained from: patient and EMR - History of Present Illness HPI Comment/Other: 45M with Marfan's, reactive airway disease, and esophageal stricture, who presents with sensation of food impaction. He ate some fried chicken on Tuesday and feels like the food bolus got stuck in his throat. Similar to prior episodes of impaction. Has tried swallowing warm water to help dislodge it without success. He is able to tolerate his own secretions but has not had anything else to eat or drink since Tuesday. On arrival to the ED he is hemodynamically stable, afebrile, WBC 8, and neck x- ray demonstrates no abnormalities and no subcutaneous air. He has been given cocacola to try and dissolve the bolus but regurgitates anything he tries to drink. He was given glucagon IV, but the sensation of food impaction remains. He has had multiple (5-6) prior episodes that are similar, most recently in 05/[address] Zhang performed an EGD demonstrating an esophageal stricture and esophagitis. No food bolus encountered at that time. Biopsies were taken demonstrating eosinophilic esophagitis, no malignancy. History - Past Medical History Cardiovascular: reports: Other (marfan syndrome) Respiratory: reports: Asthma Neuro: reports: None Endocrine/Autoimmune: reports: None GI: reports: Other (frequent esophageal obstruction) : reports: None Musculoskeletal: reports: None MRSA Hx?: No - Past Surgical History General: reports: EGD HEENT: reports: Other (nasal cautery for nose bleed) - Family & Social History Family History Comment/Other: Dad and brother with Marfan's Living arrangement: At home Living Situation: With family Social History Notes: Lives with brother and father (who is on home hospice). Not working currently. - Substance History Use: Uses substance without health or social issues: NONE - POLST Patient has POLST: No Meds/Allgy - Home Medications Home Medications: Ambulatory Orders Medication Instructions Recorded Confirmed Albuterol Sulfate [Proair Hfa] 8.5 gm IH DAILY 03/24/15 01/24/17 Cyclobenzaprine [Flexeril] 10 mg PO TID PRN #20 tablet 05/14/18 Hydrocodone/Acetaminophen 1 - 2 each PO Q6H PRN #14 tablet 05/14/18 [Hydrocodon-Acetaminophen 5-325] Chlorhexidine Gluconate [Peridex] 15 ml MM BID #473 ml 07/06/18 Clindamycin HCl [Clindamycin 300MG 300 mg PO Q6H #28 capsule 07/06/18 CAP] - Allergies Allergies/Adverse Reactions: Allergies Allergy/AdvReac Type Severity Reaction Status Date / Time aspirin Allergy Unknown Verified 07/13/21 13:41 red (food color) Allergy Unknown Verified 07/13/21 13:41 sracha sauce Allergy Edema Uncoded 07/13/21 13:41 Review of Systems - Ears, Nose & Throat Ears, Nose & Throat: reports: Dental decay, Other (Food bolus impaction and regurgitation) - All Other Systems All Other Systems: reports: Reviewed and negative Exam - Vital Signs Reviewed Vital Signs: Yes Vital Signs: Vital Signs x48h Temp Pulse Resp BP Pulse Ox 07/13/21 13:41 36.5 C 98 16 121/69 100 - Physical Exam General Appearance: positive: No acute distress, Other (Marfanoid habitus) Eyes Bilateral: positive: Normal inspection ENT: positive: ENT inspection nml, Other (Moist mucous membranes.) Neck: positive: Nml inspection, Other ( No cervical or chest crepitus.) Respiratory: positive: Chest non-tender, No respiratory distress Cardiovascular: positive: Regular rate & rhythm Peripheral Pulses: positive: 0 Abdomen: positive: Non-tender, Other (No scars.) Skin: positive: Color nml Extremities: positive: Non-tender Neurologic/Psychiatric: positive: Oriented x3, CN's nml (2-12) Sepsis Event Note (H) - Evaluation Current Stage of Sepsis: Ruled out Conclusion/Plan - Problem List (1) Esophageal foreign body Conclusion/Plan: 45M with known esophageal stricture who presents with sensation of food impaction that remains unrelieved with non-procedural maneuvers. Discussed proceeding to OR for EGD and patient is in agreement. Reviewed risks including continued food impaction, aspiration, and esophageal perforation. Plan for EGD under general anesthesia. Qualifiers: Encounter type: initial encounter Qualified Code(s): T18.108A - Unspecified foreign body in esophagus causing other injury, initial encounter - Lab Results Lab results reviewed: Yes Fish Bones: 07/13/21 15:05 07/13/21 15:05 - Diagnostic Imaging Results Diagnostic Imaging Results: positive: Final report reviewed
[2021-07-13 18:40] LABS: B. PARAPERTUSSIS- RESP PCR PAN NOT DETECTED; CORONAVIRUS 229E-RESP PCR NOT DETECTED; CORONAVIRUS HKU1-RESP PCR NOT DETECTED; CORONAVIRUS NL63-RESP PCR NOT DETECTED; CORONAVIRUS OC43-RESP PCR NOT DETECTED; HUMAN METAPNEUMOVIRUS NOT DETECTED; INFLUENZA A- RESP PCR PANEL NOT DETECTED; INFLUENZA B - RESP PCR PANEL NOT DETECTED; PARAINFLUENZA VIRUS 1 NOT DETECTED; PARAINFLUENZA VIRUS 2 NOT DETECTED; PARAINFLUENZA VIRUS 3 NOT DETECTED; PARAINFLUENZA VIRUS 4 NOT DETECTED; RHINOVIRUS/ENTEROVIRUS NOT DETECTED; RSV- RESP PCR PANEL NOT DETECTED; SARS-CoV-2 -RESP PCR PANEL NOT DETECTED
[2021-07-13 18:41] LABS: B. PERTUSSIS- RESP PCR PANEL NOT DETECTED; C. PNEUMONIAE- RESP PCR PANEL NOT DETECTED; M. PNEUMONIAE- RESP PCR PANEL NOT DETECTED
[2021-07-13] MEDS ORDERED: ATROPINE ABBOJECT 1 MG/10 ML SYRINGE IVP PRN ×3 (19:25→22:13)
[2021-07-13] MEDS ORDERED: ePHEDrine 50 MG/ML VIAL IVP PRN ×3 (19:25→22:13)
[2021-07-13] MEDS ORDERED: fentaNYL 100 MCG/2 ML VIAL IVP PRN ×3 (19:25→22:13)
[2021-07-13] MEDS ORDERED: HYDROmorphone 0.5 MG/0.5 ML SYRINGE IVP PRN ×3 (19:25→22:13)
[2021-07-13] MEDS ORDERED: NALOXONE 0.4 MG/ML VIAL IVP PRN ×3 (19:25→22:15)
[2021-07-13] MEDS ORDERED: ONDANSETRON 4 MG/2 ML VIAL IVP PRN ×4 (19:25→22:13)
[2021-07-13] MEDS ORDERED: MORPHINE 2 MG/ML CARPUJECT IVP PRN ×3 (19:25→22:13)
[2021-07-13] MEDS ORDERED: METOCLOPRAMIDE 10 MG/2 ML VIAL IVP PRN ×3 (19:25→22:13)
--- NOTE | 2021-07-13 19:25 | ANESTHESIA ---
Pre-Anesthesia VS, & Labs - Diagnosis food bolus - Procedure EGD Vital Signs: Temp Pulse Resp BP Pulse Ox 36.5 C 87 16 116/73 99 07/13/21 13:41 07/13/21 18:26 07/13/21 13:41 07/13/21 18:26 07/13/21 18:26 Height: 6 ft 3 in Weight (kg): 72 kg Body Mass Index: 19.8 BMI Classification: Healthy weight - NPO >8 hours - Lab Results Current Lab Results: Laboratory Tests 07/13/21 15:05: Sodium 137, Potassium 4.0, Chloride 103, Carbon Dioxide 22, Anion Gap 12.0, BUN 24 H, Creatinine 1.0, Estimated GFR (MDRD) 82 L, Glucose 77, Calcium 8.9 07/13/21 15:05: WBC 8.4, RBC 4.54 L, Hgb 14.4, Hct 42.9, MCV 94.5 H, MCH 31.7 H, MCHC 33.6, RDW 14.7, Plt Count 251, MPV 8.8, Neut # (Auto) 6.2, Lymph # (Auto) 1.3 L, [place] # (Auto) 0.7, Eos # (Auto) 0.2, Baso # (Auto) 0.0, Absolute Nucleated RBC 0.00, Nucleated RBC % 0.0 Lab results reviewed: Yes Fish Bones: 07/13/21 15:05 07/13/21 15:05 Home Medications and Allergies Active Medications Sodium Chloride (Normal Saline 0.9%) 1,000 mls @ 150 mls/hr IV .Q6H40M STA Stop: 07/13/21 23:09 Last Admin: 07/13/21 17:05 Dose: 150 mls/hr Albuterol Sulfate [Proair Hfa] 8.5 gm IH DAILY 03/24/15 Allergies/Adverse Reactions: Allergies Allergy/AdvReac Type Severity Reaction Status Date / Time aspirin Allergy Unknown Verified 07/13/21 13:41 red (food color) Allergy Unknown Verified 07/13/21 13:41 sracha sauce Allergy Edema Uncoded 07/13/21 13:41 Anes History & Medical History - Anesthetic History Anesthesia Complications: reports: No previous complications Family history of Anesthesia Complications: Denies Family history of Malignant Hyperthermia: Denies - Medical History Cardiovascular: reports: Other (marfan syndrome) Pulmonary: reports: Asthma Gastrointestinal: reports: Other (frequent esophageal obstruction) Urinary: reports: None Neuro: reports: None Musculoskeletal: reports: None Endocrine/Autoimmune: reports: None Blood Disorders: reports: None Smoking Status: Never smoker - Surgical History General: reports: EGD Eyes Ears Nose Throat (EENT): reports: Other (nasal cautery for nose bleed) Exam General: Alert, Oriented x3, Cooperative, No acute distress Dental: WNL Mouth Openin Fingerbreadth Neck Mobility: Normal Mallampati classification: II Plan Anesthesia Type: General Consent for Procedure(s) Verified and Reviewed: Yes Code Status: Attempt Resuscitation ASA classification: 2-Mild systemic disease Is this case an emergency?: Yes
[2021-07-13] MEDS ORDERED: LACTATED RINGERS 1,000 ML IV SCH ×4 (20:00→21:00)
[2021-07-13] MEDS ORDERED: LACTATED RINGERS 1,000 ML IV ONE (20:28)
--- NOTE | 2021-07-13 20:35 | ANESTHESIA POST OP EVALUATION ---
Anesthesia Post Eval - Post Anesthesia Eval Vitals: Last Vital Signs Temp 36.2 C L 07/13/21 20:30 Pulse 83 07/13/21 20:30 Resp 16 07/13/21 20:30 BP 113/81 H 07/13/21 20:30 Pulse Ox 96 07/13/21 20:30 CV Function Including HR & BP: Stable Pain Control: Satisfactory Nausea & Vomiting: Negative Mental Status: Baseline Respiratory Status: Airway Patent Hydration Status: Satisfactory Anesthesia Complications: None
[2021-07-13] MEDS ORDERED: SODIUM CHLORIDE FLUSH 0.9% 10 ML SYRINGE IVP PRN (20:37)
[2021-07-13] MEDS: HEPARIN 5,000 UNIT/ML VIAL SUBQ SCH (23:54)
[2021-07-14] MEDS: SODIUM CHLORIDE FLUSH 0.9% 10 ML SYRINGE IVP SCH ×3 (00:03→16:43)
[2021-07-14 06:07] LABS: CALCIUM 8.3 mg/dL (8.5-10.3); CREATININE 0.9 mg/dL (0.6-1.2); MAGNESIUM 2.2 mg/dL (1.7-2.8); PHOSPHORUS 3.3 mg/dL (2.5-4.6); POTASSIUM 4.1 mmol/L (3.5-5.0)
[2021-07-14 06:08] LABS: BASOPHILS % (AUTO) 0.1 %; HCT - HEMATOCRIT 39.4 % (42.0-52.0); HGB - HEMOGLOBIN 13.2 g/dL (14.0-18.0); LYMPHOCYTES # (AUTO) 0.6 10^3/uL (1.5-3.5); LYMPHOCYTES % (AUTO) 7.8 %; MEAN CORPUSCULAR HEMOGLOBIN 31.4 pg (27.0-31.0); MEAN CORPUSCULAR HGB CONC 33.5 g/dL (32.0-36.0); MEAN CORPUSCULAR VOLUME 93.8 fL (80.0-94.0); MEAN PLATELET VOLUME 9.2 fL (7.4-11.4); MONOCYTES # (AUTO) 0.1 10^3/uL (0.0-1.0); MONOCYTES % (AUTO) 1.6 %; NEUTROPHILS # (AUTO) 7.2 10^3/uL (1.5-6.6); NEUTROPHILS % (AUTO) 90.1 %; PLT - PLATELET COUNT 221 10^3/uL (130-450); RED CELL DISTRIBUTION WIDTH 14.7 % (12.0-15.0)
[2021-07-14] MEDS: HEPARIN 5,000 UNIT/ML VIAL SUBQ SCH ×2 (06:45→15:02)
[2021-07-14] MEDS ORDERED: PANTOPRAZOLE 40 MG VIAL IVP SCH (07:00)
--- NOTE | 2021-07-14 12:20 | PHARMACY PROGRESS NOTE ---
- Best Possible Medication History Admit Date and Time: Processed by: Pharmacy Medication History completed: Yes Secondary Source(s): Physician records, Pharmacy records, Insurance records As the person ultimately responsible for medication therapy, providers are able to order a medication from an existing home medication list in [facility] via the "Reconcile Routine" prior to Confirmation of that medication by ict support engineer. Such practice is discouraged except when the physician, in their clinical judgment, deems that a medical need exists for a medication without regard to previous use.
[2021-07-14] MEDS ORDERED: ALBUTEROL SULF 0.5% 20ML SOLUTION INH PRN (15:45)
[2021-07-14] MEDS ORDERED: ALBUTEROL NEB 2.5 MG/3 ML INH PRN (15:58)
--- NOTE | 2021-07-14 16:56 | PROVIDER PROGRESS NOTE ---
Subjective - General Procedure Date: 07/13/21 Post Op Days: 1 Procedure Performed: Esphagoscopy - Review of Systems All Other Systems: positive: Reviewed and negative Objective - Patient Data Reviewed Vital Signs: Yes Vital Signs: Vital Signs x48h Temp Pulse Resp BP Pulse Ox 07/14/21 16:26 36.4 C L 81 16 101/61 96 07/14/21 11:33 36.5 C 98 19 116/71 100 Weight: Weight 07/12/21 07/13/21 07/14/21 23:59 23:59 23:59 Weight (kg) 72 kg Intake & Output: Intake and Output Totals x24h 07/12/21 07/13/21 07/14/21 23:59 23:59 23:59 Intake Total 1000 1986.667 Output Total 50 350 Balance 950 1636.667 - Lab Results Lab Results: 07/14/21 05:45 07/14/21 05:45 Other Lab Results: Lab Results x24hrs 07/14/21 07/14/21 07/13/21 Range/Units 05:45 05:45 16:55 WBC 8.0 (4.8-10.8) x10^3/uL RBC 4.20 L (4.70-6.10) 10^6/uL Hgb 13.2 L (14.0-18.0) g/dL Hct 39.4 L (42.0-52.0) % MCV 93.8 (80.0-94.0) fL MCH 31.4 H (27.0-31.0) pg MCHC 33.5 (32.0-36.0) g/dL RDW 14.7 (12.0-15.0) % Plt Count 221 (130-450) 10^3/uL MPV 9.2 (7.4-11.4) fL Neut # (Auto) 7.2 H (1.5-6.6) 10^3/uL Lymph # (Auto) 0.6 L (1.5-3.5) 10^3/uL [place] # (Auto) 0.1 (0.0-1.0) 10^3/uL Eos # (Auto) 0.0 (0.0-0.7) 10^3/uL Baso # (Auto) 0.0 (0.0-0.1) 10^3/uL Absolute Nucleated RBC 0.00 x10^3/uL Nucleated RBC % 0.0 /100WBC Sodium 135 (135-145) mmol/L Potassium 4.1 (3.5-5.0) mmol/L Chloride 104 (101-111) mmol/L Carbon Dioxide 19 L (21-32) mmol/L Anion Gap 12.0 (6-13) BUN 22 H (6-20) mg/dL Creatinine 0.9 (0.6-1.2) mg/dL Estimated GFR (MDRD) 92 (>89) Glucose 90 (70-100) mg/dL Calcium 8.3 L (8.5-10.3) mg/dL Phosphorus 3.3 (2.5-4.6) mg/dL Magnesium 2.2 (1.7-2.8) mg/dL Nasal Adenovirus (PCR) NOT DETECTED Nasal B. parapertussis DNA (PCR) NOT DETECTED Nasal Coronavir 229E PCR NOT DETECTED Nasal Coronavir HKU1 PCR NOT DETECTED Nasal Coronavir NL63 PCR NOT DETECTED Nasal Coronavir OC43 PCR NOT DETECTED Nasal Enterovir/Rhinovir PCR NOT DETECTED Nasal Influenza B PCR NOT DETECTED Nasal Influenza A PCR NOT DETECTED Nasal Parainfluen 1 PCR NOT DETECTED Nasal Parainfluen 2 PCR NOT DETECTED Nasal Parainfluen 3 PCR NOT DETECTED Nasal Parainfluen 4 PCR NOT DETECTED Nasal RSV (PCR) NOT DETECTED Nasal B.pertussis DNA PCR NOT DETECTED Nasal C.pneumoniae (PCR) NOT DETECTED Anshu Human Metapneumo PCR NOT DETECTED Nasal M.pneumoniae (PCR) NOT DETECTED Nasal SARS-CoV-2 (PCR) NOT DETECTED - Current Medications Current Medications: Current Medications Generic Name Dose Route Start Last Admin Trade Name Freq PRN Reason Stop Dose Admin Heparin Sodium (Porcine) 5,000 unit 07/13/21 22:00 07/14/21 15:02 Heparin 5,000 Unit/Ml Vial SUBQ 5,000 unit TID VITALY Administration Ondansetron HCl 4 mg 07/13/21 20:37 07/14/21 00:09 Ondansetron 4 Mg/2 Ml Vial IVP 4 mg Q6H PRN Administration Nausea / Vomiting Pantoprazole Sodium 40 mg 07/14/21 07:00 07/14/21 06:45 Pantoprazole 40 Mg Vial IVP 40 mg QDAC VITALY Administration Sodium Chloride 10 ml 02/08/22 01:00 07/14/21 16:43 Sodium Chloride Flush 0.9% 10 Ml Syringe IVP 10 ml 0100,0900,1700 VITALY Administration - Physical Exam General Appearance: positive: No acute distress ENT: positive: ENT inspection nml Respiratory: positive: No respiratory distress Cardiovascular: positive: Regular rate & rhythm Neurologic/Psychiatric: positive: Oriented x3 Impression/Plan - Problem List Problem List: Esophageal obstruction: patient presented with sensation of food impaction with hx of known esophageal stricture and eosinophilic esophagitis. EGD demonstrated mid esophageal stenosis that was unable to be traversed. Will transfer patient to facility with GI for possible EGD and dilation. He has been accepted at [facility] (hospitalist service as primary, GI Dr. River on consult). Paperwork completed and we are awaiting a bed.
[2021-07-14] MEDS ORDERED: NON FORMULARY MED (Albuterol Sulfate [Proair Hfa Inhaler] 8.5 GM Hfa.Aer.Ad) INH PRN (17:33)
[2021-07-14] MEDS ORDERED: LACTATED RINGERS 1,000 ML IV SCH (18:00)
[2021-07-14 18:51] VITALS: BP 108/62
[2021-07-14] MEDS ORDERED: BUDESONIDE 0.5 MG/2 ML NEB INH SCH (19:00)
[2021-07-14] MEDS ORDERED: FORMOTEROL FUMARATE NEB 20 MCG/2 ML INH SCH (19:00)
[2021-07-14] MEDS ORDERED: MONTELUKAST 10 MG TABLET PO SCH ×2 (21:00)
== END 2021-07-14 21:00 | disposition short-term general hospital (02) ==
LOC: ED 13:38 → SDS 19:31 → MS2 21:18 → SDS 07-14 21:00
PROVIDERS: ATTEND Surgery
PROC: 0DB28ZX Excision of Middle Esophagus, Via Natural or Artificial Opening Endoscopic, Diagnostic (ICD-10-PCS; principal; 2021-07-13 19:30)
DX: K22.2 Esophageal obstruction (principal); Q87.40 Marfan syndrome, unspecified; J45.909 Unspecified asthma, uncomplicated
CPT/HCPCS: 0202U; 36415; 43202; 70360; 80048; 83735; 84100; 85025; 96361; 96374; 99213; 99284; 99285; J7120

== ENCOUNTER 2022-02-10 15:32 | Emergency (ER) | payer MEDICAID ==
--- OUTSIDE RECORDS SUMMARY | 2022-02-10 15:39 | EXTERNAL MEDICAL SUMMARY RPT | Continuity of Care Document ---
:1975 Author Organization [place] Address [address] [place] [address] Phone Allergies No information. Encounters No information. Functional Status No information. Immunizations No information. Medications date description facility [phone] pantoprazole [facility] [phone] cetirizine [facility] [phone] nystatin [facility] [phone] pantoprazole [facility] [phone] nystatin [facility] [phone]+0000 cetirizine [facility] Problems No information. Procedures date description facility [phone] Visit Code Hold [facility] [place] Results/Labs No information. Social History date description facility [phone] Never smoker [facility] Vital Signs date measurement value units [id number] BMI BMI 21.43 kg/m2 [id number]+0000 BP_diastolic BP_diastolic 86 mm[H g] [id number]+0000 BP_systolic BP_systolic 118 mm[Hg] [id number]+0000 heart_rate heart_rate 86 /min [id number]+0000 height_metric height_metric 189.23 cm [id number]+0000 height_standard height_standard 74.5 in [id number]+0000 respiration_rate respiration_rate 15 /min [id number]+0000 temperature_metric temperature_metric 36.67 C [id number]+0000 temperature_standard temperature_standard 9 8 F [id number]+0000 weight_metric weight_metric 76.48 kg [id number]+0000 weight_standard weight_standard 168.6 lb
--- NOTE | 2022-02-10 17:41 | ED Physician Documentation ---
PD HPI HEENT - Stated complaint Stated Complaint: TEETH INFLAMMATION - Chief complaint Chief Complaint: Heent - History obtained from History obtained from: Patient - History of Present Illness Timing - onset: How many days ago (2-3) Timing - duration: Days (2-3) Timing - details: Abrupt onset, Still present Location: Tooth (left lower molars with prior significant caries and now few days of redness/pain/ swelling.) Associated symptoms: No: Fever, Congestion Similar symptoms before: Diagnosis (has had dental infections in the past. Has had difficulty finding dentist/oral surgeon who takes his insurance.) Review of Systems Constitutional: denies: Fever, Chills Nose: denies: Rhinorrhea / runny nose, Congestion Throat: reports: Dental pain / toothache. denies: Sore throat Respiratory: denies: Cough PD PAST MEDICAL HISTORY - Past Medical History Cardiovascular: Other (marfan syndrome) Respiratory: Asthma Neuro: None Endocrine/Autoimmune: None GI: Other (frequent esophageal obstruction) : None Musculoskeletal: None - Past Surgical History Past Surgical History: Yes General: EGD HEENT: Other (nasal cautery for nose bleed) - Present Medications Home Medications: Ambulatory Orders Medication Instructions Recorded Confirmed Albuterol Sulfate [Proair Hfa] 2 puffs INH Q4H PRN 03/24/15 07/14/21 Fluticasone Propion/Salmeterol 1 puffs INH BID 07/14/21 07/14/21 [Fluticasone-Salmeterol 100-50] Montelukast [Singulair] 10 mg PO QPM 07/14/21 07/14/21 Chlorhexidine Gluconate [Peridex] 15 ml MM TID #118 ml 02/10/22 Naproxen 250 mg PO TID 7 Days #20 tablet 02/10/22 clindamycin HCL [Clindamycin HCl] 300 mg PO TID 7 Days #20 cap 02/10/22 - Allergies Allergies/Adverse Reactions: Allergies Allergy/AdvReac Type Severity Reaction Status Date / Time aspirin Allergy Unknown Verified 02/10/22 15:40 red (food color) Allergy Unknown Verified 02/10/22 15:40 sracha sauce Allergy Edema Uncoded 02/10/22 15:40 - Social History Does the pt smoke?: No Smoking Status: Never smoker Does the pt drink ETOH?: No Does the pt have substance abuse?: No - Immunizations Immunizations are current?: Yes - POLST Patient has POLST: No PD ED PE NORMAL - Vitals Vital signs reviewed: Yes - General General: Alert and oriented X 3, No acute distress, Well developed/nourished - HEENT HEENT: Ears normal, Pharynx benign. No: Dentition benign (significant caries with most teeth eroded to gumline. Left lower gum with swelling, tender without focal fluctuance. ) - Neck Neck: Supple, no meningeal sign, No adenopathy - Cardiac Cardiac: RRR, No murmur - Respiratory Respiratory: Clear bilaterally Results - Vitals Vitals: Vital Signs - 24 hr 02/10/22 18:23 Temperature 36.6 C Heart Rate 84 Respiratory 16 Rate Blood Pressure 107/85 H O2 Saturation 99 Oxygen O2 Source Room air PD MEDICAL DECISION MAKING - ED course Complexity details: considered differential, d/w patient Departure - Departure Disposition: 01 Home, Self Care Clinical Impression: Infected dental caries Condition: Stable Record reviewed to determine appropriate education?: Yes Instructions: ED Abscess Dental Prescriptions: clindamycin HCL [Clindamycin HCl] 300 mg PO TID 7 Days #20 cap Naproxen 250 mg PO TID 7 Days #20 tablet Chlorhexidine Gluconate [Peridex] 15 ml MM TID #118 ml Comments: Rinse with peroxide and water and then the chlorhexidine antiseptic mouth rinse to 3 times daily. Anti-inflammatory of naproxen 250 mg 3 times daily for the next 5 to 7 days. Clindamycin as directed 3 times daily for the next week. This should help with the infection. Follow-up with oral surgeon and her dentist at their soonest available. I transmitted your prescriptions to [email or web address] in [place]. Recheck if not improving well over the next few days and resolved by 4 to 5 days. Discharge Date/Time: 02/10/22 18:24
[2022-02-10] MEDS ORDERED: CLINDAMYCIN 150 MG CAPSULE PO STA ×2 (17:46→17:51)
[2022-02-10] MEDS ORDERED: ACETAMINOPHEN 325 MG TABLET PO STA (17:46)
[2022-02-10] MEDS ORDERED: IBUPROFEN 600 MG TABLET PO STA (17:46)
[2022-02-10] MEDS ORDERED: CLINDAMYCIN 150 MG CAPSULE PO ONE (18:00)
[2022-02-10 18:24] VITALS: BP 107/85
== END 2022-02-10 18:24 | disposition home or self-care (01) ==
LOC: ED 15:32
DX: K02.9 Dental caries, unspecified (principal)
CPT/HCPCS: 99282; 99283; A9270

== ENCOUNTER 2022-04-26 10:45 | Emergency (ER) | payer MEDICAID ==
[2022-04-26 11:00] VITALS: BP 130/77
--- NOTE | 2022-04-26 11:15 | XRAY Report ---
PROCEDURE: Chest 1 View X-Ray INDICATIONS: Chest pain TECHNIQUE: One view of the chest was acquired. COMPARISON: None. FINDINGS: Surgical changes and devices: None. Lungs and pleura: No pleural effusions or pneumothorax. Lungs are clear. Mediastinum: Mediastinal contours appear normal. Heart size is normal. Bones and chest wall: No suspicious bony lesions. Overlying soft tissues appear unremarkable. IMPRESSION: No evidence acute pulmonary process. Reviewed by: Carlos Fu MD on 04/26/2022 11:14 AM [facility] Approved by: Carlos Fu MD on 04/26/2022 11:14 AM [facility] Station ID: [id number]
[2022-04-26 11:18] LABS: BASOPHILS # (AUTO) 0.1 10^3/uL (0.0-0.1); BASOPHILS % (AUTO) 0.8 %; EOSINOPHILS # (AUTO) 0.6 10^3/uL (0.0-0.7); EOSINOPHILS % (AUTO) 7.9 %; HGB - HEMOGLOBIN 14.9 g/dL (14.0-18.0); LYMPHOCYTES # (AUTO) 2.4 10^3/uL (1.5-3.5); LYMPHOCYTES % (AUTO) 31.2 %; MEAN CORPUSCULAR HEMOGLOBIN 30.3 pg (27.0-31.0); MEAN CORPUSCULAR HGB CONC 33.1 g/dL (32.0-36.0); MEAN CORPUSCULAR VOLUME 91.6 fL (80.0-94.0); MEAN PLATELET VOLUME 9.1 fL (7.4-11.4); MONOCYTES # (AUTO) 0.8 10^3/uL (0.0-1.0); MONOCYTES % (AUTO) 9.9 %; NEUTROPHILS # (AUTO) 3.9 10^3/uL (1.5-6.6); NEUTROPHILS % (AUTO) 50.1 %; PLT - PLATELET COUNT 253 10^3/uL (130-450); RED BLOOD COUNT 4.91 10^6/uL (4.70-6.10); RED CELL DISTRIBUTION WIDTH 14.4 % (12.0-15.0); WHITE BLOOD COUNT 7.7 x10^3/uL (4.8-10.8)
[2022-04-26 11:35] LABS: ALBUMIN 4.4 g/dL (3.2-5.5); ALBUMIN/GLOBULIN RATIO 1.2 (1.0-2.2); BILIRUBIN,TOTAL 0.9 mg/dL (0.2-1.0); CALCIUM 9.3 mg/dL (8.5-10.3); CREATININE 1.1 mg/dL (0.6-1.2); POTASSIUM 3.6 mmol/L (3.5-5.0)
--- NOTE | 2022-04-26 13:48 | ED Physician Documentation ---
PD HPI CHEST PAIN - Stated complaint Stated Complaint: CHEST & LEFT SHOULDER PAIN - Chief complaint Chief Complaint: Cardiac - History obtained from History obtained from: Patient - History of Present Illness Pain level max: 2 Pain level now: 0 Quality: Sharp Location: Left chest Radiation: Left upper extremity (Occasionally to the left arm). No: Jaw, Neck, Back, Abdominal, Right upper extremity Improved by: Nothing Worsened by: Other (Caffeine) Associated symptoms: No: Shortness of air, Diaphoresis, Nausea, Vomiting, Feeling faint / dizzy, General Weakness, Cough Recently seen: Not recently seen - Additional information Additional information: Patient is a 46-year-old male who presents to the emergency department stating that over the past several weeks to months he has had intermittent sharp left chest pain. Last for about a second. And then goes away. Occasionally feels like it shoots down the left arm. Seems to be worse with caffeine intake. No shortness of breath. No nausea or vomiting. Has not had similar symptoms previously. Nothing makes it better. Has never had any cardiac issues in the past. Review of Systems Constitutional: denies: Fever, Chills Respiratory: denies: Cough GI: denies: Vomiting, Diarrhea Skin: denies: Rash Musculoskeletal: denies: Neck pain, Back pain Neurologic: denies: Headache PD PAST MEDICAL HISTORY - Past Medical History Cardiovascular: Other (marfan syndrome) Respiratory: Asthma Neuro: None Endocrine/Autoimmune: None GI: Other (frequent esophageal obstruction) : None Musculoskeletal: None - Past Surgical History Past Surgical History: Yes General: EGD HEENT: Other (nasal cautery for nose bleed) - Present Medications Home Medications: Ambulatory Orders Medication Instructions Recorded Confirmed Albuterol Sulfate [Proair Hfa] 2 puffs INH Q4H PRN 03/24/15 07/14/21 Fluticasone Propion/Salmeterol 1 puffs INH BID 07/14/21 07/14/21 [Fluticasone-Salmeterol 100-50] Montelukast [Singulair] 10 mg PO QPM 07/14/21 07/14/21 Chlorhexidine Gluconate [Peridex] 15 ml MM TID #118 ml 02/10/22 Naproxen 250 mg PO TID 7 Days #20 tablet 02/10/22 clindamycin HCL [Clindamycin HCl] 300 mg PO TID 7 Days #20 cap 02/10/22 - Allergies Allergies/Adverse Reactions: Allergies Allergy/AdvReac Type Severity Reaction Status Date / Time aspirin Allergy Unknown Verified 02/10/22 15:40 red (food color) Allergy Unknown Verified 02/10/22 15:40 sracha sauce Allergy Edema Uncoded 02/10/22 15:40 - Social History Does the pt smoke?: No Smoking Status: Never smoker Does the pt drink ETOH?: No Does the pt have substance abuse?: No - Immunizations Immunizations are current?: Yes - POLST Patient has POLST: No PD ED PE NORMAL - Vitals Vital signs reviewed: Yes - General General: Alert and oriented X 3, No acute distress - HEENT HEENT: Moist mucous membranes - Neck Neck: Supple, no meningeal sign, No bony TTP, No JVD, No bruit - Cardiac Cardiac: RRR, No murmur, Strong equal pulses - Respiratory Respiratory: No respiratory distress, Clear bilaterally - Abdomen Abdomen: Soft, Non tender, Non distended - Derm Derm: Warm and dry - Extremities Extremities: No edema, No calf tenderness / cord - Neuro Neuro: Alert and oriented X 3 - Psych Psych: Normal mood, Normal affect Results - Vitals Vitals: Vital Signs - 24 hr 04/26/22 10:55 Temperature 37.0 C Heart Rate 77 Respiratory 19 Rate Blood Pressure 130/77 O2 Saturation 100 Oxygen O2 Source Room air - EKG (time done) 1103 Rate: Rate (enter#) (74) Rhythm: NSR Yarnell: Normal Intervals: Normal FL, RBBB (Incomplete right bundle branch block) Ischemia: Normal ST segments - Labs Labs: Laboratory Tests 04/26/22 04/26/22 04/26/22 11:14 11:14 11:14 WBC 7.7 RBC 4.91 Hgb 14.9 Hct 45.0 MCV 91.6 MCH 30.3 MCHC 33.1 RDW 14.4 Plt Count 253 MPV 9.1 Neut # (Auto) 3.9 Lymph # (Auto) 2.4 Webb # (Auto) 0.8 Eos # (Auto) 0.6 Baso # (Auto) 0.1 Absolute Nucleated RBC 0.00 Nucleated RBC % 0.0 Sodium 141 Potassium 3.6 Chloride 102 Carbon Dioxide 29 Anion Gap 10.0 BUN 17 Creatinine 1.1 Estimated GFR (MDRD) 73 L Glucose 92 Calcium 9.3 Total Bilirubin 0.9 AST 23 ALT 16 Alkaline Phosphatase 73 Troponin I High Sens 3.4 Total Protein 8.0 Albumin 4.4 Globulin 3.6 Albumin/Globulin Ratio 1.2 Lipase 36 - Rads (name of study) Chest x-ray Radiology: Final report received, EMP read contemporaneously, See rad report (No acute disease) PD MEDICAL DECISION MAKING - ED course Complexity details: reviewed results, re-evaluated patient, considered differential (No ST elevation CT, no aortic dissection, no PE, no tension pneumothorax, no aortic aneurysm), d/w patient ED course: Patient is asymptomatic here. No acute findings on EKG, laboratory testing, chest x-ray. History sounds consistent with likely premature ventricular contractions. We will have him follow-up with his doctor for further care and a Zio patch or Holter monitor. No evidence of aortic dissection, aortic aneurysm, acute coronary syndrome, PE. Patient counseled regarding signs and symptoms for which I believe and urgent re-evaluation would be necessary. Patient with good understanding of and agreement to plan and is comfortable going home at this time This document was made in part using voice recognition software. While efforts are made to proofread this document, sound alike and grammatical errors may occur. Departure - Departure Disposition: 01 Home, Self Care Clinical Impression: Atypical chest pain, Palpitations Condition: Good Instructions: ED Chest Pain Atypical Unkn Cause Follow-Up: Dara Garcia ARNP [Primary Care Provider] - Within 1 week Comments: Please follow-up with your doctor for further care. There are no acute findings on your laboratory testing, EKG or chest x-ray. Your symptoms sound suspicious for what we call Premature ventricular contractions. I would recommend that your doctor prescribed a Zio patch or Holter monitor for you. This way they can monitor you for any sort of arrhythmias. I would also limit caffeine intake and stimulants. Please return if you worsen. Discharge Date/Time: 04/26/22 13:51
== END 2022-04-26 13:51 | disposition home or self-care (01) ==
LOC: ED 10:45
DX: R07.89 Other chest pain (principal); R00.2 Palpitations; M79.602 Pain in left arm; I45.10 Unspecified right bundle-branch block
CPT/HCPCS: 36415; 80053; 83690; 84484; 85025; 93005; 99284

== ENCOUNTER 2023-04-19 13:45 | Outpatient (CLI) | payer MEDICAID ==
[2023-04-19 20:12] LABS: BASOPHILS # (AUTO) 0.1 10^3/uL (0.0-0.1); BASOPHILS % (AUTO) 0.7 %; EOSINOPHILS # (AUTO) 0.6 10^3/uL (0.0-0.7); EOSINOPHILS % (AUTO) 8.8 %; HCT - HEMATOCRIT 43.3 % (42.0-52.0); HGB - HEMOGLOBIN 14.1 g/dL (14.0-18.0); LYMPHOCYTES # (AUTO) 2.2 10^3/uL (1.5-3.5); LYMPHOCYTES % (AUTO) 30.7 %; MEAN CORPUSCULAR HEMOGLOBIN 29.7 pg (27.0-31.0); MEAN CORPUSCULAR HGB CONC 32.6 g/dL (32.0-36.0); MEAN CORPUSCULAR VOLUME 91.2 fL (80.0-94.0); MEAN PLATELET VOLUME 9.5 fL (7.4-11.4); MONOCYTES # (AUTO) 0.7 10^3/uL (0.0-1.0); MONOCYTES % (AUTO) 10.5 %; NEUTROPHILS # (AUTO) 3.5 10^3/uL (1.5-6.6); NEUTROPHILS % (AUTO) 49.2 %; PLT - PLATELET COUNT 250 10^3/uL (130-450); RED BLOOD COUNT 4.75 10^6/uL (4.70-6.10); RED CELL DISTRIBUTION WIDTH 13.7 % (12.0-15.0)
[2023-04-19 20:57] LABS: THYROID STIMULATING HORMONE 5.69 uIU/mL (0.34-5.60)
[2023-04-19 20:58] LABS: ALBUMIN 4.3 g/dL (3.2-5.5); ALBUMIN/GLOBULIN RATIO 1.5 (1.0-2.2); ALKALINE PHOSPHATASE 63 IU/L (42-121); ALT ALANINE AMINOTRANSFERASE 10 IU/L (10-60); AST ASPARTATE AMINOTRANSFERASE 17 IU/L (10-42); BILIRUBIN,TOTAL 0.8 mg/dL (0.2-1.0); BUN - BLOOD UREA NITROGEN 15 mg/dL (6-20); CARBON DIOXIDE - CO2 29 mmol/L (21-32); CHLORIDE 104 mmol/L (101-111); CHOL/HDL RATIO 4.8 (<5.0); CHOLESTEROL 232 mg/dL; CREATININE 1.2 mg/dL (0.6-1.3); GFR - MDRD 65 (>89); GLUCOSE 85 mg/dL (74-104); HDL CHOLESTEROL 48 mg/dL; LDL CHOLESTEROL,CALCULATED 166 mg/dL; LDL/HDL RATIO 3.5 (<3.6); POTASSIUM 3.7 mmol/L (3.5-4.5); SODIUM 138 mmol/L (135-145); TOTAL PROTEIN 7.2 g/dL (6.4-8.9); TRIGLYCERIDES 88 mg/dL (48-352); VLDL CHOLESTEROL 18 mg/dL
== END 2023-04-19 13:46 | disposition home or self-care (01) ==
LOC: LAB.S 13:45
PROVIDERS: ATTEND Registered Nurse
DX: Z79.899 Other long term (current) drug therapy (principal)
CPT/HCPCS: 36415; 80050; 80061; 83721; 84439